=== PATIENT | male | born 1970 | race Caucasian/White ===

== ENCOUNTER 2017-01-21 09:51 | Emergency (ER) | payer MEDICAID ==
[~2017-01-21] VITALS: Ht 170.2 cm; Wt 74.0 kg
[2017-01-21 12:58] VITALS: BP 122/86
== END 2017-01-21 13:01 | disposition home or self-care (01) ==
LOC: ER 11:47
DX: R21 Rash and other nonspecific skin eruption (principal); E78.00 Pure hypercholesterolemia, unspecified
CPT/HCPCS: 99282